=== PATIENT | female | born 1990 | race Two or more races ===

== ENCOUNTER 2017-02-05 04:25 | Outpatient (CLI) | payer OTHER, MEDICAID ==
[~2017-02-05] VITALS: Ht 157.5 cm; Wt 78.0 kg
[2017-02-05] MEDS ORDERED: D5%-LACTATED RINGERS 1,000 ML IV ONE (07:20)
[2017-02-05] MEDS ORDERED: PREN1TAB69 PO (09:49)
[2017-02-07] MEDS ORDERED: DOCU-131 PO (13:41)
[2017-02-07] MEDS ORDERED: HYDR-3240 PO (13:42)
[2017-02-07] MEDS ORDERED: IBUP-1222 PO (13:42)
== END 2017-02-05 09:55 | disposition home or self-care (01) ==
LOC: LDOP 04:25
PROVIDERS: ATTEND Obstetrics & Gynecology
DX: O26.893 Other specified pregnancy related conditions, third trimester (principal); R10.9 Unspecified abdominal pain; Z3A.39 39 weeks gestation of pregnancy
CPT/HCPCS: 59025; 96360; 96361; 99211; G0463; J7121